=== PATIENT | female | born 1945 | race Caucasian/White ===

== ENCOUNTER → 2017-10-12 17:00 | Outpatient (CLI) | payer MEDICARE, SELFPAY ==
[2017-10-12 18:28] LABS: Anion Gap 6.3 mEq/L (5-15); Blood Urea Nitrogen 18 mg/dL (7-18); Calcium 8.4 mg/dL (8.5-10.1); Carbon Dioxide 32 mmol/L (21.0-32.0); Chloride 105 mmol/L (98-107); Creatinine,Serum 1.13 mg/dL (0.55-1.02); Estimated Glomerular Filt Rate 47 ml/min (>60); GFR (African American) 57 ML/MIN (>60); Glucose 84 mg/dL (74-106); Potassium 3.3 mmoL/L (3.5-5.1); Sodium 140 mmol/L (136-145)
== END ==
PROVIDERS: PCP Internal Medicine; Visit Provider Internal Medicine
DX: I50.9 Heart failure, unspecified (principal); I10 Essential (primary) hypertension
CPT/HCPCS: 36415; 80048; 80162; 83880

== ENCOUNTER → 2019-08-14 14:01 | Outpatient (CLI) | payer MEDICARE, MEDICAID, SELFPAY | PROVIDERS: PCP Family Medicine; Visit Provider Urology | DX: C95.90 Leukemia, unspecified not having achieved remission (principal); E11.9 Type 2 diabetes mellitus without complications; E66.01 Morbid (severe) obesity due to excess calories; E78.5 Hyperlipidemia, unspecified; G47.33 Obstructive sleep apnea (adult) (pediatric); I11.0 Hypertensive heart disease with heart failure; I48.91 Unspecified atrial fibrillation; I50.30 Unspecified diastolic (congestive) heart failure; Z79.01 Long term (current) use of anticoagulants; Z99.89 Dependence on other enabling machines and devices | CPT/HCPCS: 93306; G0399 ==

== ENCOUNTER 2019-08-24 08:08 | Day surgery (SDC) | payer MEDICARE, MEDICAID, SELFPAY ==
[2019-08-24] VITALS (12 sets, daily range): BP systolic 117–154; BP diastolic 69–88; PULSE 57–88; RESP 16–18; TEMP 36.9; O2SAT 88–94; BMI 39.6
--- NOTE | 2019-08-24 | IR_ITS ---
APPROVED REPORT PROCEDURES Left heart catheterization Left ventriculogram Selective coronary angiogram INDICATION Recent acute non-ST elevation myocardial infarction, New onset cardiomyopathy ejection fraction 20% Informed consent was obtained prior to the procedure. COMPLICATIONS None Estimated Blood Loss: less than 10ml TECHNIQUE One percent lidocaine used to anesthetize the right anterior aspect of the wrist. The right radial artery was accessed via the Seldinger technique. A 6 Malian sheath was placed in the right radial artery. 2.5 mg of verapamil, 800 mcg of nitroglycerin, 1mg Lidocaine and 5000 U Heparin were given through the arterial sheath. The trap catheter was also used to perform left heart catheterization, left ventriculogram and selective coronary angiogram. At the end of the procedure the sheath was removed good hemostasis was achieved using Traclet band, patient was transferred to the postop holding area in stable condition. ANGIOGRAPHIC RESULTS The left main artery Normal The left anterior descending artery Normal The circumflex artery Normal The right coronary artery Dominant normal The RHODES ventriculogram reveals Severely dilated global hypokinesis 20% The left ventricular end-diastolic pressure 10 mmHg IMPRESSION Normal coronary arteries Severe left ventricular dysfunction Normal left ventricular end-diastolic pressure PLAN 1. Medical management Electronically signed by : Monico Montana, 08/24/2019 10:12:01
[2019-08-24 08:52] LABS: Basophils # 0.1 K/mm3 (0-0.2); Basophils % 0.7 % (0.1-2.0); Eosinophils # 0.1 K/mm3 (0.0-0.4); Eosinophils % 0.7 % (0.1-12.0); Hematocrit 40.9 % (42.0-52.0); Hemoglobin 13.2 g/dL (14.1-18.0); Lymphocytes # 3.2 K/mm3 (0.7-4.5); Lymphocytes % 25.5 % (10-50); Mean Corpuscular HGB Conc 32.3 g/dL (31.8-35.4); Mean Corpuscular Hemoglobin 28.5 pg (27.0-31.2); Mean Corpuscular Volume 88.1 fl (80-94); Mean Platelet Volume 9.7 fl (7.4-10.4); Monocytes # 0.8 K/mm3 (0.1-1.0); Monocytes % 5.9 % (1.7-9.3); Neutrophils # 8.5 K/mm3 (1.8-7.8); Neutrophils % 67.2 % (37.0-80.0); Platelet Count 208 K/mm3 (142-424); Red Blood Count 4.64 M/mm3 (4.60-6.20); Red Cell Distribution Width 14.7 % (11.5-17.5); White Blood Count 12.7 K/mm3 (4.8-10.8)
[2019-08-24 08:57] LABS: Chloride 103 mmol/L (98-107); Sodium 139 mmol/L (136-145)
[2019-08-24 08:58] LABS: Potassium 3.7 mmoL/L (3.5-5.1)
[2019-08-24 09:00] LABS: Blood Urea Nitrogen 16 mg/dl (9-20); Creatinine Clearance Estimated 121 mL/min (50-200); Estimated Glomerular Filt Rate 94 ml/min (>60); GFR (African American) 114 ML/MIN (>60)
[2019-08-24 09:01] LABS: Anion Gap 12.7 mEq/L (5-15); Calcium 8.8 mg/dl (8.4-10.2); Carbon Dioxide 27 mmol/L (22.0-30.0); Glucose 220 mg/dl (74-100)
== END 2019-08-24 13:26 | disposition home or self-care (01) ==
LOC: CATHLAB 08:10
PROVIDERS: PCP Family Medicine; Visit Provider Internal Medicine
DX: I42.8 Other cardiomyopathies (principal); I11.0 Hypertensive heart disease with heart failure; I50.43 Acute on chronic combined systolic (congestive) and diastolic (congestive) heart failure; I21.4 Non-ST elevation (NSTEMI) myocardial infarction; C91.10 Chronic lymphocytic leukemia of B-cell type not having achieved remission; E11.9 Type 2 diabetes mellitus without complications; Z79.84 Long term (current) use of oral hypoglycemic drugs; Z79.01 Long term (current) use of anticoagulants; Z79.899 Other long term (current) drug therapy; I48.91 Unspecified atrial fibrillation
CPT/HCPCS: 80048; 85025; 93458; 99152; C1725; C1760; C1769; J1644; Q9967

== ENCOUNTER → 2020-01-08 07:37 | Outpatient (CLI) | payer MEDICARE, MEDICAID, SELFPAY | PROVIDERS: PCP Family Medicine; Visit Provider Urology | DX: I42.9 Cardiomyopathy, unspecified; I50.43 Acute on chronic combined systolic (congestive) and diastolic (congestive) heart failure; C91.10 Chronic lymphocytic leukemia of B-cell type not having achieved remission; C95.11 Chronic leukemia of unspecified cell type, in remission; E11.9 Type 2 diabetes mellitus without complications; E66.01 Morbid (severe) obesity due to excess calories; E78.2 Mixed hyperlipidemia; I11.0 Hypertensive heart disease with heart failure; I48.91 Unspecified atrial fibrillation; G47.33 Obstructive sleep apnea (adult) (pediatric); Z79.01 Long term (current) use of anticoagulants; Z99.89 Dependence on other enabling machines and devices; Z79.84 Long term (current) use of oral hypoglycemic drugs | CPT/HCPCS: 93306 ==

== ENCOUNTER → 2020-10-08 10:10 | Outpatient (CLI) | payer MEDICARE, MEDICAID, SELFPAY ==
[2020-10-08 13:49] LABS: Alanine Aminotransferase 21 U/L (12-78); Alkaline Phosphatase 72 U/L (38-126); Aspartate Amino Transferase 30 U/L (17-59); Bilirubin,Direct 0.6 mg/dl (0.0-0.4); Bilirubin,Total 0.6 mg/dl (0.2-1.3); Chol/HDL Ratio 6.3 (1-3.5); Cholesterol 203 mg/dl (140-200); HDL Cholesterol 32 mg/dl (40-60); Total Protein,Serum 6.9 g/dl (6.3-8.2)
[2020-10-08 13:54] LABS: Triglycerides 474 mg/dl (30-150)
[2020-10-08 14:00] LABS: Direct LDL Cholesterol 97.71 mg/dL (100-129)
== END ==
PROVIDERS: Visit Provider Internal Medicine
DX: I10 Essential (primary) hypertension (principal); E78.5 Hyperlipidemia, unspecified
CPT/HCPCS: 36415; 80061; 80076

== ENCOUNTER → 2021-04-11 08:20 | Outpatient (CLI) | payer MEDICARE, MEDICAID, SELFPAY ==
--- NOTE | 2021-04-11 08:21 | CA_ITS ---
APPROVED REPORT EXAM: Comprehensive 2D, Doppler, and color-flow Echocardiogram Picker Feeder: Desi Jacques CRT Ht: 6 ft 1 in Wt: 286lbs BSA: 2.50 BP: 145/66 mmHg Indications: Atrial Fibrillation, Diabetes, Obesity, Peripheral Edema, Hyperlipidemia, Hypertension/HDD 2D Dimensions LVOT 2.03 cm (M/F) 1.5-2.5 LA Volume 57.30 mL LA Volume Index 22.80 mL/m2 (M/F) 16-34 M-Mode Dimensions RVDd 3.62 cm (0.9-2.6) LA Diam 5.00 cm (1.9-4.0) LVDd 6.43 cm (3.5-5.7) Ao Diam 5.17 cm (2.0-3.7) LVDs 4.99 cm (3.5-5.7) IVSd 1.80 cm (0.6-1.1) PWd 1.29 cm (0.6-1.1) EF (Teich) 44.20% FS 22.40% EDV (Teich) 210.80 mL TAPSE 1.48 (<1.7) ESV (Teich) 117.70 mL LV Diastology E Decel Time 203.00 (160-240 msec) E/A Ratio 4.49 MED E' 9.70 (< 7 cm/sec) MED A' 7.10 cm/s E'/MED E' Ratio 8.56 (>14) LAT E' 6.90 (<10 cm/sec) LAT A' 5.70 cm/s E/LAT E' Ratio 12.03 (>14) Aortic Valve LVOT Max 161.00 (70-110 cm/s) LVOT VTI 33.10 cm AoV Peak Joselo. 250.00 (50-130 cm/s) AO Peak GR. 25.10 mmHg AO Mean GR. 11.20 (<5 mmHg) AO VTI 45.40 (18-25 cm) LI (VTI) 2.36 (2.5-4.5 cm2) Mitral Valve MV E Max Joselo. 83.00 (40-130 cm/s) MV A Velocity 19.00 (40-130 cm/s) E/A Ratio 4.49 MV Decel. Time 203.00 (160-240 ms) MV PHT 60.00 ms Tricuspid Valve TR P. Velocity 276.00 cm/s RAP Estimate 10.00 mmHg RVSP 40.40 mmHg Left Ventricle Left atrium is moderately enlarged, left ventricle is mildly dilated, mild concentric left ventricular hypertrophy, visually estimated ejection fraction 45%, the proximal interventricular septum and inferior basal jara are dyskinetic. Diastolic parameters are inconclusive. Right Ventricle Right atrium and right ventricle mildly enlarged with normal contractility. Aortic Valve Aortic valve is thickened and calcified mean gradient across aortic valve is 12 mmHg, valve area is 1.6 cm represents mild aortic stenosis, there is no significant aortic insufficiency seen. Mitral Valve Mitral valve leaflets are minimally thickened, there is mild mitral regurgitation. Tricuspid Valve Tricuspid valve grossly normal, there is mild tricuspid regurgitation, tricuspid regurgitation jet velocity is inadequate for calculation of the right ventricular systolic pressure. Pulmonic Valve Pulmonic valve is poorly visualized. Great Vessels Aortic root is normal size. Inferior vena cava is poorly visualized. Pericardium No significant pericardial effusion. Conclusion 1. Biatrial enlargement, normal left ventricular size, mild concentric left ventricular hypertrophy, visually estimated ejection fraction 45% with segmental wall motion abnormality described above, diastolic parameters are inconclusive. 2. Mildly enlarged right ventricle with normal contractility. 3. Thickened and calcified aortic valve with mild aortic stenosis, there is no aortic insufficiency. 4. Mild mitral and tricuspid regurgitation. 5. No significant pericardial effusion. 6. Inferior vena cava is poorly visualized. Electronically signed by : Maurizio Yeager MD 04/11/2021 10:08:45
== END ==
PROVIDERS: PCP Family Medicine; Visit Provider Nurse Practitioner Family
DX: I42.9 Cardiomyopathy, unspecified (principal); I50.43 Acute on chronic combined systolic (congestive) and diastolic (congestive) heart failure; R94.31 Abnormal electrocardiogram [ECG] [EKG]
CPT/HCPCS: 93306

== ENCOUNTER → 2021-11-13 14:46 | Outpatient (CLI) | payer MEDICARE, MEDICAID, SELFPAY ==
--- NOTE | 2021-11-13 14:53 | CA_ITS ---
APPROVED REPORT EXAM: Comprehensive 2D, Doppler, and color-flow Echocardiogram Malted Milk Supervisor: Bhavani Dooley RT(R) Ht: 6 ft 1 in Wt: 289lbs BSA: 2.52 BP: 157/73 mmHg Indications: CHF, hx of CM, echo 03/2021 EF 45%, recent hospital stay at [facility] with CHF diagnosis, MARSHAL, CLL, AFIB, mild , SOB, obesity, CAD, DM, HTN, hyperlipidemia. 2D Dimensions LVOT 2.10 cm (M/F) 1.5-2.5 LA Volume 80.50 mL LA Volume Index 32.07 mL/m2 (M/F) 16-34 M-Mode Dimensions RVDd 3.83 cm (0.9-2.6) LA Diam 4.78 cm (1.9-4.0) LVDd 5.65 cm (3.5-5.7) Ao Diam 3.06 cm (2.0-3.7) LVDs 4.62 cm (3.5-5.7) IVSd 1.38 cm (0.6-1.1) PWd 1.13 cm (0.6-1.1) EF (Teich) 37.30% FS 18.20% EDV (Teich) 156.80 mL ESV (Teich) 98.30 mL LV Diastology E Decel Time 150.00 (160-240 msec) E/A Ratio 3.1 Aortic Valve LVOT Max 138.00 (70-110 cm/s) LVOT VTI 26.05 cm AoV Peak Joselo. 280.00 (50-130 cm/s) AO Peak GR. 31.50 mmHg AO Mean GR. 15.40 (<5 mmHg) AO VTI 53.11 (18-25 cm) LI (VTI) 1.70 (2.5-4.5 cm2) Mitral Valve MV E Max Joselo. 91.00 (40-130 cm/s) MV A Velocity 29.00 (40-130 cm/s) E/A Ratio 3.09 MV Decel. Time 150.00 (160-240 ms) MV PHT 44.00 ms Tricuspid Valve TR P. Velocity 302.00 cm/s RAP Estimate 15.00 mmHg RVSP 51.50 mmHg Left Ventricle Technically difficult study because of the patient factors and poor acoustic windows. Left atrium is moderately enlarged, left ventricle is normal size mild concentric left ventricular hypertrophy, probably estimated ejection fraction 40 to 45% with no obvious regional wall motion abnormality, endocardial cells are very poorly visualized. Diastolic parameters are inconclusive. Right Ventricle Right atrium and right ventricle are mildly enlarged with normal contractility. Aortic Valve Aortic valve is thickened and calcified with restriction in the leaflet mobility however Doppler is indicative of mild aortic stenosis, mean gradient aortic valve is 18 mmHg, valve area is 1.5 cm???, there is no aortic insufficiency. Mitral Valve Mitral valve has mitral calcification, there is no mitral stenosis, there is mild mitral regurgitation. Tricuspid Valve Tricuspid valve is grossly normal, there is mild tricuspid regurgitation, calculated right ventricular systolic pressure is 46 mmHg. Pulmonic Valve Pulmonic valve is poorly visualized. Great Vessels Aortic root is normal size. Inferior vena cava is poorly visualized. Pericardium No significant pericardial effusion noted. Conclusion 1. Technically difficult study as described above, biatrial enlargement, normal left ventricular size, mild concentric left ventricular hypertrophy, estimated ejection fraction is probably 40 to 45% with no regional wall motion abnormality, diastolic parameters are inconclusive. 2. Mildly enlarged right ventricle with normal contractility. 3. Thickened and calcified aortic valve, Doppler is indicative of mild aortic stenosis, valve area is 1.5 cm???, there is no significant aortic insufficiency. 4. No significant pericardial effusion noted. 5. Inferior vena cava is poorly visualized. Electronically signed by : Maurizio Yeager MD 11/14/2021 14:43:27
== END ==
PROVIDERS: PCP Family Medicine; Visit Provider Nurse Practitioner
DX: C91.90 Lymphoid leukemia, unspecified not having achieved remission (principal); E11.9 Type 2 diabetes mellitus without complications; E66.01 Morbid (severe) obesity due to excess calories; E78.2 Mixed hyperlipidemia; I11.0 Hypertensive heart disease with heart failure; I35.0 Nonrheumatic aortic (valve) stenosis; I50.42 Chronic combined systolic (congestive) and diastolic (congestive) heart failure; Z79.01 Long term (current) use of anticoagulants; Z99.89 Dependence on other enabling machines and devices; Z68.38 Body mass index [BMI] 38.0-38.9, adult; Z79.84 Long term (current) use of oral hypoglycemic drugs; R94.31 Abnormal electrocardiogram [ECG] [EKG]
CPT/HCPCS: 93306

== ENCOUNTER 2022-08-12 13:32 | Inpatient (IN) | payer MEDICARE, MEDICAID, SELFPAY ==
[2022-08-12] VITALS (14 sets, daily range): BP systolic 132–179; BP diastolic 53–92; PULSE 31–81; RESP 14–20; TEMP 36.4–36.9; O2SAT 87–98; BMI 38.2; BMI 37.5
--- NOTE | 2022-08-12 13:40 | ECG_ITS ---
APPROVED REPORT Exam: Resting ECG HR:41 bpm ECG Measurements Heart Rate 41 AXES QRSd 127 QRS -7 QT 402 T 160 QTc 337 Conclusion ATRIAL FIBRILLATION WITH SLOW VENTRICULAR RESPONSE LEFT BUNDLE BRANCH BLOCK [120+ ms QRS DURATION, 80+ ms Q/S IN V1/V2, 85+ ms R IN I/aVL/V5/V6] ABNORMAL ECG UNCONFIRMED REPORT Electronically signed by : Govind Deshpande MD 08/13/2022 22:22:42
--- NOTE | 2022-08-12 13:40 | PC.NURSE ---
MD notified of pt heart rate at this time. pt is placed on Zoll and remains on phototypesetting equipment monitor. asked MD about giving medication for HR. no new orders at this time
--- NOTE | 2022-08-12 13:57 | XR_ITS ---
FINAL REPORT CLINICAL HISTORY: dyspnea FINDINGS: SINGLE VIEW CHEST The heart size is normal. The mediastinum is normal. There is mild left lung base opacity favors atelectasis over pneumonia. There is no pneumothorax. IMPRESSION: Mild left lung base opacity, favoring atelectasis over pneumonia Reviewed, Interpreted and Dictated by Geovany Tijerina III, MD Transcribed by Dolores Flores Authenticated and [facility]
--- NOTE | 2022-08-12 13:58 | HMH.EDGENADL ---
Discharge Plan Disposition Patient Disposition: Admitted Chief Complaint: Arrhythmia/Palpitations Prescriptions Prescriptions: No Action nitroglycerin 0.4 mg tablet, sublingual 0.4 mg SUBLINGUAL Q5-15M PRN spironolactone 25 mg tablet 25 mg PO DAILY Farxiga 10 mg tablet 10 mg PO DAILY gabapentin 300 mg capsule 300 mg PO BID glipizide 10 mg tablet extended release 24hr 10 mg PO DAILY levothyroxine 75 mcg tablet 75 mcg PO fluticasone propionate 50 mcg/actuation spray,suspension 2 spray intranasal DAILY PRN metformin 500 mg tablet extended release 24 hr 500 mg PO BID albuterol sulfate [Ventolin HFA] 90 mcg/actuation HFA aerosol inhaler 2 puff inhalation Q4-6H Imbruvica 420 mg tablet 420 mg PO DAILY lisinopril 10 mg tablet 10 mg PO DAILY Qty: 90 3RF metolazone 2.5 mg tablet 2.5 mg PO Q OTHER DAY carvedilol 12.5 mg tablet 12.5 mg PO BID Qty: 180 5RF Rx Instructions: must administer with a meal/food Xarelto 20 mg tablet See Rx Instructions .ROUTE .COMPLEX Qty: 90 1RF Dose Instruction: TAKE 1 TABLET EVERY DAY Rx Instructions: TAKE 1 TABLET EVERY DAY digoxin 125 mcg (0.125 mg) tablet See Rx Instructions .ROUTE .COMPLEX Qty: 90 1RF Dose Instruction: TAKE 1 TABLET EVERY DAY Rx Instructions: TAKE 1 TABLET EVERY DAY simvastatin 80 mg tablet See Rx Instructions .ROUTE .COMPLEX Qty: 90 1RF Dose Instruction: TAKE 1 TABLET AT BEDTIME Rx Instructions: TAKE 1 TABLET AT BEDTIME furosemide 40 mg tablet See Rx Instructions .ROUTE .COMPLEX Qty: 180 1RF Dose Instruction: TAKE 1 TABLET TWICE DAILY Rx Instructions: TAKE 1 TABLET TWICE DAILY pantoprazole 40 mg tablet,delayed release (DR/EC) See Rx Instructions .ROUTE .COMPLEX Qty: 90 1RF Dose Instruction: TAKE 1 TABLET EVERY DAY Rx Instructions: TAKE 1 TABLET EVERY DAY Referrals Follow up/Referrals: Kishan Tapia [Primary Care Provider] - See instructions Clinical Impressions Clinical Impression: Symptomatic bradycardia, NICHOLAS (acute kidney injury) Discharge ED Provider: Laura Gibbs General Adult HPI General Chief complaint: Arrhythmia/Palpitations Stated complaint: Phys ref, weakness, irregular heart pace Time Seen by Provider: 08/12/22 13:51 History of Present Illness HPI narrative: Patient is a 76-year-old male with a history of cardiomyopathy CHF leukemia diabetes atrial fibrillation diastolic heart failure presenting today with bradycardia and weakness. States he fell last night went to his primary care doctor today who gave me a call and sent him to the emergency department. Patient does not have a defibrillator and AICD in place. He is on beta-blockers including Coreg. He has not changed any medication doses recently he had normal urine output and states that he has not changed any other medications. Patient denies any chest pain shortness of breath fevers chills or any other symptoms other than his profound weakness. Related Data Home Medications Medication Instructions Recorded Confirmed nitroglycerin 0.4 mg sublingual 0.4 mg sublingual Q5-15M PRN 08/17/19 05/01/22 tablet spironolactone 25 mg tablet 25 mg PO DAILY 01/08/20 05/01/22 dapagliflozin propanediol 10 mg 10 mg PO DAILY 04/11/21 05/01/22 tablet (Farxiga) albuterol sulfate 90 mcg/actuation 2 puff inhalation Q4-6H 10/24/21 05/01/22 aerosol inhaler (Ventolin HFA) gabapentin 300 mg capsule 300 mg PO BID 10/24/21 05/01/22 ibrutinib 420 mg tablet (Imbruvica) 420 mg PO DAILY 10/24/21 05/01/22 metformin 500 mg tablet,extended 500 mg PO BID 10/24/21 05/01/22 release 24 hr metolazone 2.5 mg tablet 2.5 mg PO Q OTHER DAY 11/13/21 05/01/22 fluticasone propionate 50 2 spray intranasal DAILY PRN 05/01/22 05/01/22 mcg/actuation nasal spray,suspension glipizide 10 mg tablet, extended 10 mg PO DAILY 05/01/22 05/01/22 re
--- NOTE | 2022-08-12 13:59 | ECG_ITS ---
APPROVED REPORT Exam: Resting ECG HR:57 bpm ECG Measurements Heart Rate 57 AXES WV 158 P -83 QRSd 128 QRS -31 QT 476 T -60 QTc 471 Conclusion SINUS BRADYCARDIA WITH FREQUENT VENTRICULAR PREMATURE COMPLEXES IN A BIGEMINAL PATTERN INFERIOR MYOCARDIAL INFARCTION , OF INDETERMINATE AGE [40+ ms Q WAVE AND/OR ST/T ABNORMALITY IN II/aVF] ST DEVIATION AND MODERATE T-WAVE ABNORMALITY, CONSIDER LATERAL ISCHEMIA [-0.1+ mV T-WAVE IN I/aVL/V5/V6] ABNORMAL ECG UNCONFIRMED REPORT Electronically signed by : Govind Deshpande MD 08/13/2022 22:22:35
[2022-08-12 14:15] LABS: Chloride 98 mmol/L (98-107); Sodium 139 mmol/L (136-145)
[2022-08-12 14:16] LABS: Potassium 5.1 mmoL/L (3.5-5.1)
[2022-08-12 14:18] LABS: Alanine Aminotransferase 18 U/L (12-78); Alkaline Phosphatase 81 U/L (38-126); Aspartate Amino Transferase 32 U/L (17-59); Bilirubin,Total 0.9 mg/dl (0.2-1.3); Blood Urea Nitrogen 44 mg/dl (9-20); Estimated Glomerular Filt Rate 37 ml/min (>60); GFR (African American) 44 ML/MIN (>60)
[2022-08-12 14:19] LABS: Albumin/Globulin Ratio 1.4 (1.1-1.8); Calcium 8.1 mg/dl (8.4-10.2); Carbon Dioxide 35 mmol/L (22.0-30.0); Globulin 2.9 g/dL (1.3-3.2); Glucose 136 mg/dl (74-100); Magnesium 2.4 mg/dl (1.6-2.3); Total Protein,Serum 6.9 g/dl (6.3-8.2)
[2022-08-12 14:22] LABS: Anion Gap 11.1 mEq/L (5-15)
[2022-08-12 14:31] LABS: Troponin I 0.05 ng/ml (0.00-0.034)
[2022-08-12 14:57] LABS: Basophils # 0.7 K/mm3 (0-0.2); Basophils % 1.6 % (0.1-2.0); Eosinophils # 0.2 K/mm3 (0.0-0.4); Eosinophils % 0.4 % (0.1-12.0); Hematocrit 42.5 % (42.0-52.0); Hemoglobin 13.1 g/dL (14.1-18.0); Lymphocytes % 76.4 % (10-50); Mean Corpuscular HGB Conc 30.8 g/dL (31.8-35.4); Mean Corpuscular Hemoglobin 29.7 pg (27.0-31.2); Mean Corpuscular Volume 96.5 fl (80-94); Mean Platelet Volume 10.4 fl (7.4-10.4); Monocytes # 1.4 K/mm3 (0.1-1.0); Monocytes % 3.3 % (1.7-9.3); Neutrophils # 7.7 K/mm3 (1.8-7.8); Neutrophils % 18.4 % (37.0-80.0); Platelet Count 227 K/mm3 (142-424)
[2022-08-12 14:59] LABS: White Blood Count 41.9 K/mm3 (4.8-10.8)
[2022-08-12 15:00] LABS: MANUAL DIFFERENTIAL MANUAL DIFFERENTIAL (MANUAL DIFF)
--- NOTE | 2022-08-12 15:21 | PC.NURSE ---
CHECKED ON PT NOTHING NEEDED AT THIS TIME, CALL LIGHT AT BS
[2022-08-12 15:23] LABS: Thyroid Stimulating Hormone 7.22 uIU/mL (0.465-4.68)
[2022-08-12 15:26] LABS: Lymphocytes % 67 % (10-50); Monocytes % 4 % (2-9); Neutrophils % 26 % (42-76); Total Cells Counted 100
[2022-08-12 15:28] LABS: Platelet Estimate Normal; Poikilocytosis 1+; Stomatocytes 1+
--- NOTE | 2022-08-12 15:30 | PC.NURSE ---
Spoke with Nichole in Care Management regarding pt admission
--- NOTE | 2022-08-12 15:32 | PC.NURSE ---
COVID SWAB SENT TO LAB
[2022-08-12 15:36] LABS: Coronavirus 19, PCR Not Detected (NotDetected); Influenza A, PCR Not Detected (NotDetected); Influenza B, PCR Not Detected (NotDetected)
--- NOTE | 2022-08-12 15:42 | EXP.HP ---
History of Present Illness *Admission Date: 08/12/22 *Reason for visit:: weakness *History of present illness: Mr. Kong is a 76-year-old male with significant cardiac history, history of cardiomyopathy, CHF, CLL, diabetes, A-fib who presents today to the ER with bradycardia and weakness. States he fell last night at home. Went to his primary care today who gave the ER call. Patient was sent for further evaluation. Does not have a defibrillator AICD in place. Last echo approximately a year ago with a EF 40 to 45%. Currently on beta-blockers with carvedilol and digoxin. Urine output has been normal. Denies any increase in shortness of breath. Denies any chest pain. No edward syncope. No fever, chills, increased cough. Swelling in legs is at baseline. Of note leukocytosis greater than 40,000, on ibrutinib for his CLL. ER consulted medicine for admission and further management. Currently on telemetry. Admitted to stepdown out of potential need for possible pacing or treatment with atropine for bradycardia. Continue telemetry. Patient pleasant, alert on exam. Chronically ill-appearing. Complains of weakness. [facility] Disclaimer: The information contained in this section may have been updated after the patient was seen, as this information can be updated by other users. Medical History Cardiomyopathy CHF (congestive heart failure) Hyperlipidemia Hypertension Leukemia MARSHAL on CPAP Toe amputee Surgical History History of removal of cyst Family History No significant family history Social History Smoking Status: Never smoker alcohol intake: never substance use type: denies use current occupational status: retired Travel in the last 8 weeks: Inside the [place] household members: spouse housing: house Meds Home Medications and Allergies Home Medications Medication Instructions Recorded Confirmed Type nitroglycerin 0.4 mg sublingual 0.4 mg sublingual Q5-15M PRN Chest 08/17/19 08/12/22 History tablet Pain spironolactone 25 mg tablet 25 mg PO DAILY blood pressure 01/08/20 08/12/22 History dapagliflozin propanediol 10 mg 10 mg PO DAILY Diabetes 04/11/21 08/12/22 History tablet (Farxiga) albuterol sulfate 90 mcg/actuation 2 puff inhalation Q4-6H PRN 10/24/21 08/12/22 History aerosol inhaler (Ventolin HFA) Breathing Problems gabapentin 300 mg capsule 300 mg PO TID neuropathy 10/24/21 08/12/22 History ibrutinib 420 mg tablet (Imbruvica) 420 mg PO DAILY daily 10/24/21 08/12/22 History metformin 500 mg tablet,extended 500 mg PO BID Diabetes 10/24/21 08/12/22 History release 24 hr fluticasone propionate 50 2 spray intranasal DAILY PRN 05/01/22 08/12/22 History mcg/actuation nasal allergies spray,suspension glipizide 10 mg tablet, extended 10 mg PO DAILY Diabetes 05/01/22 08/12/22 History release 24 hr levothyroxine 75 mcg tablet 75 mcg PO DAILY thyroid 05/01/22 08/12/22 History carvedilol 12.5 mg tablet 12.5 mg PO BID blood pressure 08/12/22 08/12/22 History digoxin 125 mcg (0.125 mg) tablet 0.125 mg PO DAILY afib 08/12/22 08/12/22 History furosemide 40 mg tablet 40 mg PO BID chf 08/12/22 08/12/22 History levocetirizine 5 mg tablet 5 mg PO DAILY allergies 08/12/22 08/12/22 History lisinopril 10 mg tablet 10 mg PO DAILY blood pressure 08/12/22 08/12/22 History pantoprazole 40 mg tablet,delayed 40 mg PO DAILY gerd 08/12/22 08/12/22 History release rivaroxaban 20 mg tablet (Xarelto) 20 mg PO DAILY Blood thinner 08/12/22 08/12/22 History simvastatin 80 mg tablet 80 mg PO DAILY Cholesterol 08/12/22 08/12/22 History New Prescriptions to Start Prescriptions: Allergies Allergy/AdvReac Type Severity Reaction Status Date / Time No Known Allergies Allergy Verified 08/12/22 19:56
--- NOTE | 2022-08-12 15:49 | PC.NURSE ---
Notified ED Charge of bed assignment. Pt going to 219. Registration notified of admission
[2022-08-12 16:03] LABS: Hemoglobin A1C 8.7 % (4.0-6.0)
--- NOTE | 2022-08-12 16:17 | PC.NURSE ---
report given to SUNIL Farmer
--- NOTE | 2022-08-12 16:41 | PC.NURSE ---
arrived by stretcher from ED
[2022-08-12 17:29] LABS: Troponin I 0.06 ng/ml (0.00-0.034)
[2022-08-12 17:34] LABS: POC Glucose,Bedside 160 (70-110)
[2022-08-12 17:47] LABS: Thyroid Stimulating Hormone 7.48 uIU/mL (0.465-4.68)
[2022-08-12 20:20] LABS: POC Glucose,Bedside 165 (70-110)
[2022-08-12 20:49] LABS: Troponin I 0.05 ng/ml (0.00-0.034)
[2022-08-13] VITALS (25 sets, daily range): BP systolic 105–192; BP diastolic 39–92; PULSE 31–60; RESP 16–22; TEMP 36.6–37.7; O2SAT 89–96; BMI 37.0
[2022-08-13 06:51] LABS: POC Glucose,Bedside 127 (70-110)
[2022-08-13 07:04] LABS: Basophils # 0.4 K/mm3 (0-0.2); Basophils % 0.9 % (0.1-2.0); Eosinophils # 0.1 K/mm3 (0.0-0.4); Eosinophils % 0.3 % (0.1-12.0); Hematocrit 42.6 % (42.0-52.0); Hemoglobin 12.8 g/dL (14.1-18.0); Lymphocytes # 32.7 K/mm3 (0.7-4.5); Lymphocytes % 77.1 % (10-50); Mean Corpuscular HGB Conc 30.1 g/dL (31.8-35.4); Mean Corpuscular Hemoglobin 29.7 pg (27.0-31.2); Mean Corpuscular Volume 98.5 fl (80-94); Mean Platelet Volume 10.5 fl (7.4-10.4); Monocytes # 1.5 K/mm3 (0.1-1.0); Monocytes % 3.5 % (1.7-9.3); Neutrophils # 7.7 K/mm3 (1.8-7.8); Neutrophils % 18.1 % (37.0-80.0); Platelet Count 217 K/mm3 (142-424); Red Blood Count 4.32 M/mm3 (4.60-6.20)
[2022-08-13 07:11] LABS: MANUAL DIFFERENTIAL MANUAL DIFFERENTIAL (MANUAL DIFF); White Blood Count 42.4 K/mm3 (4.8-10.8)
[2022-08-13 07:18] LABS: Chloride 100 mmol/L (98-107); Potassium 4.7 mmoL/L (3.5-5.1); Sodium 141 mmol/L (136-145)
[2022-08-13 07:20] LABS: Alanine Aminotransferase 16 U/L (12-78); Alkaline Phosphatase 83 U/L (38-126); Anion Gap 13.7 mEq/L (5-15); Aspartate Amino Transferase 40 U/L (17-59); Bilirubin,Total 0.9 mg/dl (0.2-1.3); Blood Urea Nitrogen 42 mg/dl (9-20); Carbon Dioxide 32 mmol/L (22.0-30.0); Creatinine Clearance Estimated 67 mL/min (50-200); Estimated Glomerular Filt Rate 39 ml/min (>60); GFR (African American) 48 ML/MIN (>60); Triglycerides 209 mg/dl (30-150); VLDL Cholesterol 42 mg/dL (0-40)
[2022-08-13 07:21] LABS: Albumin Level 3.8 g/dl (3.5-5.0); Albumin/Globulin Ratio 1.4 (1.1-1.8); Calcium 8.2 mg/dl (8.4-10.2); Chol/HDL Ratio 6.5 (1-3.5); Cholesterol 110 mg/dl (140-200); Globulin 2.8 g/dL (1.3-3.2); Glucose 131 mg/dl (74-100); HDL Cholesterol 17 mg/dl (40-60); Magnesium 2.4 mg/dl (1.6-2.3); Total Protein,Serum 6.6 g/dl (6.3-8.2)
[2022-08-13 07:32] LABS: Direct LDL Cholesterol 51.16 mg/dL (100-129)
[2022-08-13 08:38] LABS: Eosinophils % 1 % (0-3); Lymphocytes % 68 % (10-50); Monocytes % 2 % (2-9); Neutrophils % 29 % (42-76); Platelet Estimate Normal; RBC Morphology Normal; Total Cells Counted 100
--- NOTE | 2022-08-13 09:18 | HMH.PHAINT1 ---
Pharmacy Intervention Comments: Patient's home medications reviewed and verified with patient and external pharmacy. -Jace Francois, Pharm Student
--- NOTE | 2022-08-13 10:56 | PC.NURSE ---
COURTESY TECH NOTE; ROUNDED ON PT 0900, PT DENIED NEED FOR DRINK, ASSISTED PRIMARY TECH TO POSITION PT IN BED AND ADJUST BEDPAN. CALL LIGHT WITHIN REACH, NO FURTHER REQUESTS AT THIS TIME KING MULLEN
--- NOTE | 2022-08-13 11:09 | EXP.CARD.CON ---
History of Present Illness History of Present Illness Consult date: 08/13/22 Requesting physician: Kishan Noguera Chief complaint: symptomatic bradycardia History of present illness: 76 year old white male with past medical hx of chronic afib, CLL on irbrutinib, normal cors 2020, mild aortic stenosis presented to emergency department last night with complaints of generalized weakness and bradycardia. Patient reports he sustained a fall at home the night before which prompted him to go to his PCP yesterday. Upon arrival to PCPs office patient was noted to be bradycardic with rate in the 40s prompting referral to ER. Upon arrival to ED EKG was sinus freida with a rate of 41. Patient takes both Coreg and digoxin at home. Patient denies chest pain or soa. Only complaints of ongoing weakness. Labs as follow: WBC 42.4 (CLL on a irbrutinib), hemoglobin 12.8, creatinine 1.7, digoxin level 2.0, TSH 7.48. Chest xray and left lung base atelectasis versus pneumonia. Patient was admitted for symptomatic bradycardia and for cardiology evaluation. Coreg was held last night and rate remains afib 30-40s. [facility] Disclaimer: The information contained in this section may have been updated after the patient was seen, as this information can be updated by other users. Medical History Cardiomyopathy CHF (congestive heart failure) Hyperlipidemia Hypertension Leukemia MARSHAL on CPAP Toe amputee Surgical History History of removal of cyst Family History No significant family history Social History Smoking Status: Never smoker alcohol intake: never substance use type: denies use current occupational status: retired Travel in the last 8 weeks: [place] the [place] household members: spouse housing: house Review of Systems Review of Systems Review of systems:: pertinent systems reviewed and negative unless documented below Constitutional Constitutional: Reports weakness *Cardiovascular Cardiovascular: Denies chest pain and Denies dyspnea on exertion *Respiratory Respiratory: Denies dyspnea on exertion *Neurologic Neurologic: Reports weakness Exam Data for Last 24 hours Vital signs and Labs for Last 24 Hours: Temp Pulse Resp BP Pulse Ox 99.8 F H 47 L 18 185/68 H 93 L 08/13/22 08:00 08/13/22 08:54 08/13/22 06:00 08/13/22 06:00 08/13/22 06:00 Laboratory Results - last 24 hr 08/12/22 14:03: WBC 41.9 H*, RBC 4.40 L, Hgb 13.1 L, Hct 42.5, MCV 96.5 H, MCH 29.7, MCHC 30.8 L, RDW 16.0, Plt Count 227, MPV 10.4, Neut % (Auto) 18.4 L, Lymph % (Auto) 76.4 H, Stafford % (Auto) 3.3, Eos % (Auto) 0.4, Baso % (Auto) 1.6, Neut # (Auto) 7.7, Lymph # (Auto) 32.0 H, Stafford # (Auto) 1.4 H, Eos # (Auto) 0.2, Baso # (Auto) 0.7 H, Total Counted 100, Neutrophils % (Manual) 26 L, Lymphocytes % (Manual) 67 H, Monocytes % (Manual) 4, Basophils % (Manual) 2.0 H, Blast Cells % 1.0, Platelet Estimate Normal, RBC Morphology Not Reportable, Poikilocytosis 1+, Stomatocytes 1+, Sodium 139, Potassium 5.1, Chloride 98, Carbon Dioxide 35 H, Anion Gap 11.1, BUN 44 H, Creatinine 1.80 H, Estimated GFR 37 L, Est GFR ( Amer) 44 L, Glucose 136 H, Hemoglobin A1c 8.7 H, Calcium 8.1 L, Magnesium 2.4 H, Total Bilirubin 0.9, AST 32, ALT 18, Alkaline Phosphatase 81, Troponin I 0.05 H, Total Protein 6.9, Albumin 4.0, Globulin 2.9, Albumin/Globulin Ratio 1.4, TSH 7.22 H 08/12/22 15:29: SARS-CoV-2 (PCR) Not detected, Influenza A Untype (PCR) Not detected, Influenza Type B (PCR) Not detected 08/12/22 16:55: Troponin I 0.06 H, TSH 7.48 H 08/12/22 17:12: POC Glucose 160 H 08/12/22 20:05: Troponin I 0.05 H 08/12/22 20:08: POC Glucose 165 H 08/13/22 06:18: WBC 42.4 H*, RBC 4.32 L, Hgb 12.8 L, Hct 42.6, MCV 98.5 H, MCH 29.7, MCHC 30.1 L, RDW 16.0, Plt Count 217, MPV 10.5 H, Neut % (Auto) 18
--- NOTE | 2022-08-13 11:36 | HMH.PTEV ---
Physical Therapy Evaluation Rehab PT IP Evaluation Start: 08/13/22 10:04 Freq: ONCE Status: Active Protocol: Document 08/13/22 11:31 PHORNE (Rec: 08/13/22 11:36 PHORNE [id number]) Subjective/History History History 76 yowm adm to [facility] with symptomatic bradycardia. He reports he lives with his spouse, ramp to enter the home , he generally ambulates independently, but he has RW and cane at home if needed. Subjective Subjective Pt currently has no c/o , feels mildly tired, but agrees to mobility assessment. Rehab PT IP Eval Objective Appearance Patient Behavior Appropriate Patient Orientation Person,Place,Time Difficulty following instructions none Speech Pattern Clear Ambulation Patient Able to Ambulate Yes Ambulation Observation IP General Gait Pattern Observation Wide Based Gait Ambulation Distance (feet) 5 Ambulation Assistive Device None Ambulation Ability Contact Guard/Hand Hold Balance Ability to Arise Able, uses arms to help Sitting Balance Steady, safe Standing Balance Steady, wide stance Dynamic Sitting Balance Ability Good Dynamic Standing Balance Ability Fair Transfers Bed Transfer Ability Contact Guard/Hand Hold Chair Transfer Ability Contact Guard/Hand Hold Sit to Stand Bed Transfer Ability Contact Guard/Hand Hold Sit to Stand Chair Transfer Ability Contact Guard/Hand Hold ROM All Extremities PT ROM Status WFL MMT All Extremities PT MMT WFL Rehab PT IP prob,goals,plan Problems Date of Evaluation: 08/13/22 PT IP Problems Bed Mobility,Transfers,Gait Rehab Potential Rehab Potential Good Plan PT Intervention Plan Bed Mobility,Transfers,Gait, Therapeutic Exercise PT Plan Frequency Daily Duration LOS Discharge Goals Bed Transfer Ability Supervision/Stand by Sit to Stand Chair Transfer Ability Supervision/Stand by Ambulation Assistive Device Rolling Walker Ambulation Distance (feet) 25 Discharge Plan PT Discharge Plan Pt is currently appropriate to return home once medically stable for d/c. This may change after he receives possible pacemaker, but likely he would continue to be able to return ho
--- NOTE | 2022-08-13 11:46 | HMH.OTEV ---
OT Inpatient Evaluation Rehab OT IP Evaluation Start: 08/13/22 10:04 Freq: ONCE Status: Active Protocol: Document 08/13/22 11:42 CALEB (Rec: 08/13/22 11:46 [id number] Rehab OT IP Assessment Subjective History Pt oriented x 3 on arrival. Pt agreeable to engage in therapy evaluation. 76 yowm adm to [facility] with symptomatic bradycardia. He reports he lives with his spouse, ramp to enter the home, he generally ambulates independently, but he has RW and cane at home if needed. Pt claims he is independent with all ADLs such as dressing, bathing, and feeding. However, his completes all IADLs: cleaning, cooking, and laundry. He does assist her with grocery shopping. He still drives. Subjective I really never have cleaned, my always does it. Pt resting in chair on arrival . pt agreeable to engage in sit to stand from chair. Pt stood from chair with cga/min assist. Pt able to stand for ~1 minute with fair static standing balance. Pt request to sit back down due to feeling tired. Pt sat back down in chair with cga. Pt was left resting in chair with call lemus and all other needs in reach. Objective Patient Orientation Person,Place,Birthday Upper Extremity Gross ROM WFL Transfer Training Sit/Stand Transfer Assist Level Minimal x 1 (25% assist) Rehab OT IP prob,goals,plan Problems Date of Evaluation: 08/13/22 OT IP Problems Bed Mobility,Transfers,Balance ,Self care,Safety Rehab Potential Rehab Potential Good Equipment Needs Assistive Devices Rolling / Wheeled Walker Plan OT intervention Plan Bed Mobility,Transfers,Balance ,Self care,Safety,Therapeutic Exercise OT Plan Frequency BID Duration LOS Discharge Goals Bed Mobility Ability
[2022-08-13 12:52] LABS: POC Glucose,Bedside 149 (70-110)
[2022-08-13 17:14] LABS: POC Glucose,Bedside 145 (70-110)
--- NOTE | 2022-08-13 18:26 | EXP.ACUTE.PN ---
Subjective *Date: 08/13/22 *Time: 18:27 Interval history: Mr. Kong is alert and oriented on exam this morning. Stable on 2 L nasal cannula oxygen. Denies any chest pain, worsening shortness of breath, nausea or vomiting. Tolerating p.o. intake. Discussed case with cardiology this morning, concern for digoxin toxicity. Patient remained bradycardic with heart rate 30-60 overnight. Medical Exam Vital signs and Labs for Last 24 Hours: Vital Signs Temp Pulse Pulse Resp BP Pulse Ox 08/13/22 17:00 49 L 18 117/54 L 94 L 08/13/22 16:00 44 L 22 144/92 H 89 L 08/13/22 15:00 40 L 20 133/55 L 92 L 08/13/22 14:00 49 L 20 114/48 L 95 08/13/22 13:00 35 L 20 122/63 93 L 08/13/22 12:00 43 L 18 170/69 H 90 L 08/13/22 11:00 46 L 20 108/41 L 94 L 08/13/22 10:00 45 L 20 128/56 L 93 L 08/13/22 09:00 46 L 20 191/72 H 95 08/13/22 16:00 44 L 89 L 08/13/22 08:00 37 L 93 L 08/13/22 08:00 37 L 20 192/83 H 93 L 08/13/22 15:26 98.0 F 08/13/22 12:27 31 L 08/13/22 12:24 41 L 08/13/22 08:00 45 L 08/13/22 11:50 98.2 F 08/13/22 08:00 99.8 F H 08/13/22 08:54 47 L 08/13/22 06:00 47 L 18 185/68 H 93 L 08/13/22 04:00 97.8 F 45 L 16 171/71 H 93 L 08/13/22 03:48 50 L 08/13/22 02:30 93 L 08/13/22 02:00 60 18 159/79 H 93 L 08/13/22 00:00 58 L 08/13/22 00:00 97.8 F 39 L 18 156/68 H 96 08/12/22 20:00 34 L 93 L 08/12/22 22:00 53 L 18 174/56 H 95 06/28/23 20:00 98.4 F 34 L 16 152/73 H 93 L 08/12/22 23:12 95 08/12/22 20:00 48 L Intake and Output 08/13/22 08/13/22 08/13/22 07:59 15:59 23:59 Intake Total 240 / 1010 480 / 1010 290 / 1010 Output Total 600 / 2100 1200 / 2100 300 / 2100 Balance -360 / -1090 -720 / -1090 -10 / -1090 Intake: Intake, Oral Amount 240 / 960 480 / 960 240 / 960 Intake, Total IV Amount 50 / 50 Digoxin Immune Francisco 100 mg In 0. 50 / 50 9 % Sodium Chloride 50 ml @ 100 mls/hr IV ONCE ONE Rx#: [id number] Output: Output, Urine Amount 600 / 2100 1200 / 2100 300 / 2100 Other: Number of Unmeasured Voids 1 1 Number of Bowel Movements 1 1 Weight 131.134 kg Patient Weight 08/13/22 23:59 Weight 131.134 kg Laboratory Results - last 24 hr 08/12/22 20:05: Troponin I 0.05 H 08/12/22 20:08: POC Glucose 165 H 08/13/22 06:18: WBC 42.4 H*, RBC 4.32 L, Hgb 12.8 L, Hct 42.6, MCV 98.5 H, MCH 29.7, MCHC 30.1 L, RDW 16.0, Plt Count 217, MPV 10.5 H, Neut % (Auto) 18.1 L, Lymph % (Auto) 77.1 H, [place] % (Auto) 3.5, Eos % (Auto) 0.3, Baso % (Auto) 0.9, Neut # (Auto) 7.7, Lymph # (Auto) 32.7 H, [place] # (Auto) 1.5 H, Eos # (Auto) 0.1, Baso # (Auto) 0.4 H, Total Counted 100, Neutrophils % (Manual) 29 L, Lymphocytes % (Manual) 68 H, Monocytes % (Manual) 2, Eosinophils % (Manual) 1, Platelet Estimate Normal, RBC Morphology Normal, Sodium 141, Potassium 4.7, Chloride 100, Carbon Dioxide 32 H, Anion Gap 13.7, BUN 42 H, Creatinine 1.70 H, Estimated Creat Clear 67, Estimated GFR 39 L, Est GFR ( Amer) 48 L, Glucose 131 H, Calcium 8.2 L, Magnesium 2.4 H, Total Bilirubin 0.9, AST 40, ALT 16, Alkaline Phosphatase 83, Total Protein 6.6, Albumin 3.8, Globulin 2.8, Albumin/Globulin Ratio 1.4, Triglycerides 209 H, Cholesterol 110 L, LDL Cholesterol Direct 51.16 L, VLDL Cholesterol 42 H, HDL Cholesterol 17 L, Cholesterol/HDL Ratio 6.5 H 08/13/22 06:25: Digoxin 2.00 08/13/22 06:41: POC Glucose 127 H 08/13/22 12:17: POC Glucose 149 H 08/13/22 16:28: POC Glucose 145 H I & O for Labs for Last 24 Hours: Intake & Output 08/10/22 08/11/22 08/12/22 08/13/22 23:59 23:59 23:59 23:59 Intake Total 480 / 720 1010 / 1010 Output Total 100 / 700 2100 / 2100 Balance 380 / 20 -1090 / -1090 Weight 132.647 kg 131.134 kg Constitutional: Present no acute distress, obese and chronically ill appearing Head: Present atra
[2022-08-13 19:11] LABS: Chloride 96 mmol/L (98-107); Potassium 4.4 mmoL/L (3.5-5.1); Sodium 139 mmol/L (136-145)
[2022-08-13 19:14] LABS: Anion Gap 15.4 mEq/L (5-15); Blood Urea Nitrogen 40 mg/dl (9-20); Carbon Dioxide 32 mmol/L (22.0-30.0); Creatinine Clearance Estimated 60 mL/min (50-200); Estimated Glomerular Filt Rate 35 ml/min (>60); GFR (African American) 42 ML/MIN (>60)
[2022-08-13 19:15] LABS: Calcium 8.3 mg/dl (8.4-10.2); Glucose 184 mg/dl (74-100)
[2022-08-13 20:24] LABS: POC Glucose,Bedside 189 (70-110)
[2022-08-14] VITALS (26 sets, daily range): BP systolic 109–174; BP diastolic 54–87; PULSE 31–81; RESP 12–29; TEMP 36.2–37; O2SAT 90–96; BMI 36.6; BMI 39.8
[2022-08-14 05:31] LABS: POC Glucose,Bedside 128 (70-110)
[2022-08-14 07:00] LABS: Basophils # 0.3 K/mm3 (0-0.2); Basophils % 0.8 % (0.1-2.0); Eosinophils # 0.2 K/mm3 (0.0-0.4); Eosinophils % 0.5 % (0.1-12.0); Hematocrit 42.4 % (42.0-52.0); Hemoglobin 12.8 g/dL (14.1-18.0); Lymphocytes # 29.5 K/mm3 (0.7-4.5); Lymphocytes % 77.1 % (10-50); Mean Corpuscular HGB Conc 30.1 g/dL (31.8-35.4); Mean Corpuscular Hemoglobin 29.3 pg (27.0-31.2); Mean Corpuscular Volume 97.3 fl (80-94); Mean Platelet Volume 10.4 fl (7.4-10.4); Monocytes # 1.5 K/mm3 (0.1-1.0); Monocytes % 3.8 % (1.7-9.3); Neutrophils # 6.8 K/mm3 (1.8-7.8); Neutrophils % 17.7 % (37.0-80.0); Platelet Count 184 K/mm3 (142-424); Red Blood Count 4.36 M/mm3 (4.60-6.20); Red Cell Distribution Width 15.8 % (11.5-17.5); White Blood Count 38.2 K/mm3 (4.8-10.8)
[2022-08-14 07:02] LABS: MANUAL DIFFERENTIAL MANUAL DIFFERENTIAL (MANUAL DIFF)
[2022-08-14 07:41] LABS: Chloride 99 mmol/L (98-107); Sodium 139 mmol/L (136-145)
[2022-08-14 07:42] LABS: Potassium 4.5 mmoL/L (3.5-5.1)
[2022-08-14 07:44] LABS: Alanine Aminotransferase 14 U/L (12-78); Albumin Level 3.9 g/dl (3.5-5.0); Albumin/Globulin Ratio 1.6 (1.1-1.8); Alkaline Phosphatase 80 U/L (38-126); Anion Gap 14.5 mEq/L (5-15); Aspartate Amino Transferase 32 U/L (17-59); Blood Urea Nitrogen 44 mg/dl (9-20); Calcium 8.2 mg/dl (8.4-10.2); Carbon Dioxide 30 mmol/L (22.0-30.0); Creatinine Clearance Estimated 67 mL/min (50-200); Estimated Glomerular Filt Rate 39 ml/min (>60); GFR (African American) 48 ML/MIN (>60); Globulin 2.5 g/dL (1.3-3.2); Glucose 124 mg/dl (74-100); Total Protein,Serum 6.4 g/dl (6.3-8.2)
[2022-08-14 07:45] LABS: Magnesium 2.4 mg/dl (1.6-2.3)
--- NOTE | 2022-08-14 08:13 | EXP.CARD.PN ---
Subjective Subjective Date: 08/14/22 Time: 08:00 Principal diagnosis: Symptomatic bradycardia, chronic A-fib Interval history: Patient remains in A-fib with a rate of 20s to low 50s throughout the evening and morning. Morning labs reviewed. Exam Data for Last 24 hours Vital signs and Labs for Last 24 Hours: Temp Pulse Resp BP Pulse Ox 97.8 F 39 L 16 149/68 H 92 L 08/14/22 07:46 08/14/22 06:00 08/14/22 06:00 08/14/22 06:00 08/14/22 06:00 Laboratory Results - last 24 hr 08/13/22 06:18: Total Counted 100, Neutrophils % (Manual) 29 L, Lymphocytes % (Manual) 68 H, Monocytes % (Manual) 2, Eosinophils % (Manual) 1, Platelet Estimate Normal, RBC Morphology Normal 08/13/22 06:25: Digoxin 2.00 08/13/22 12:17: POC Glucose 149 H 08/13/22 16:28: POC Glucose 145 H 08/13/22 18:40: Sodium 139, Potassium 4.4, Chloride 96 L, Carbon Dioxide 32 H, Anion Gap 15.4 H, BUN 40 H, Creatinine 1.90 H, Estimated Creat Clear 60, Estimated GFR 35 L, Est GFR ( Amer) 42 L, Glucose 184 H D, Calcium 8.3 L 08/13/22 20:17: POC Glucose 189 H 08/14/22 05:19: POC Glucose 128 H 08/14/22 06:33: WBC 38.2 H*, RBC 4.36 L, Hgb 12.8 L, Hct 42.4, MCV 97.3 H, MCH 29.3, MCHC 30.1 L, RDW 15.8, Plt Count 184, MPV 10.4, Neut % (Auto) 17.7 L, Lymph % (Auto) 77.1 H, [place] % (Auto) 3.8, Eos % (Auto) 0.5, Baso % (Auto) 0.8, Neut # (Auto) 6.8, Lymph # (Auto) 29.5 H, [place] # (Auto) 1.5 H, Eos # (Auto) 0.2, Baso # (Auto) 0.3 H, Sodium 139, Potassium 4.5, Chloride 99, Carbon Dioxide 30, Anion Gap 14.5, BUN 44 H, Creatinine 1.70 H, Estimated Creat Clear 67, Estimated GFR 39 L, Est GFR ( Amer) 48 L, Glucose 124 H D, Calcium 8.2 L, Magnesium 2.4 H, Total Bilirubin 1.0, AST 32, ALT 14, Alkaline Phosphatase 80, Total Protein 6.4, Albumin 3.9, Globulin 2.5, Albumin/Globulin Ratio 1.6 I & O for Last 24 hours: Intake & Output 08/11/22 08/12/22 08/13/22 08/14/22 23:59 23:59 23:59 23:59 Intake Total 480 / 720 1010 / 1370 360 / 360 Output Total 100 / 700 2400 / 2400 0 / 0 Balance 380 / 20 -1390 / -1030 360 / 360 Weight 292 lb 7 oz 289 lb 1.6 oz 285 lb 5 oz Constitutional Constitutional: no acute distress *Routine Respiratory Exam Respiratory: Present rhonchi, wheezes and symmetric chest movement *Routine Cardiovascular Exam Cardiovascular: Present Normal S1, Normal S2, irregular rhythm and irregularly irregular Comments: Remains slow A-fib with a rate of 30-50 *Routine Abdominal Exam Abdominal: Present soft and normoactive bowel sounds; Absent tenderness *Routine Extremities Exam Extremities: Present full ROM and normal capillary refill; Absent edema *Routine Skin Exam Skin: Present intact, dry and warm Detailed Neck Exam: Thyroids Thyroid: Absent bruit Progress Note: A&P Assessment and plan (1) Symptomatic bradycardia: Status: Acute (2) Atrial fibrillation: Status: Chronic (3) CLL (chronic lymphocytic leukemia): Status: Chronic (4) NICHOLAS (acute kidney injury): Status: Acute (5) CHF (congestive heart failure): Status: Chronic (6) MARSHAL on CPAP: Status: Chronic (7) Diabetes: Status: Chronic (8) Hyperlipemia: Status: Chronic Assessment and Plan Assessment and Plan for All Diagnoses:: Symptomatic bradycardia -Dig level 2.0 -Hold digoxin and carvedilol -Dr. [place] is concerned for dig toxicity contributing to bradycardia. Please give Digibind per pharmacy dosing -Please keep patient n.p.o. after midnight and hold Xarelto tonight for possibility of device placement tomorrow 08/14/2022: Rate remains anywhere from 30 to low 50s. We will proceed with placement of biventricular pacemaker today. Patient requires biventricular pacemaker due to afib with high degree av block requiring > 40 percent ventricular pacing with LVEF < 50 percent and NYHA symptoms II-III. Chronic A-fib -EKG shows A-fib rate 30 to 40s. -Normal cors 2019 -Currently holding digoxin and carvedilol due to symptomatic bradycardia -Continue con
[2022-08-14 08:42] LABS: Lymphocytes % 54 % (10-50); Monocytes % 10 % (2-9); Neutrophils % 36 % (42-76); Platelet Estimate Normal; RBC Morphology Normal; Total Cells Counted 100
--- NOTE | 2022-08-14 08:54 | SW/DCPLANNER ---
Addendum entered by Becca Cheng 08/19/22 08:58: The plan for this patient is to go to [facility] from home today. Addendum entered by Becca Cheng 08/17/22 14:07: [facility] is unable to accept this patient due to needing a [facility]DEV pending bed. Per family request patient information has been faxed to [facility]/ [facility]. I will follow up with [facility] once patient information is reviewed. Addendum entered by Becca Cheng 08/17/22 13:19: [facility]/ [facility]NOTE 3] is interested in this patient and will follow up with patient's daughter at home. Addendum entered by Becca Cheng 08/17/22 11:17: [facility] by [facility] does not currently have any beds. I spoke with patient's daughter and information will be faxed to [facility]NOTE 3], [facility] and [facility]. Addendum entered by Becca Cheng 08/17/22 07:17: Per family request once discharging home over the weekend patient information has been faxed to [facility] and [facility]. I will follow up with [facility] and patient/family once patient information is reviewed. Original Note: I spoke with patient this AM regarding plans once medically stable for discharge. PT/OT evaluated patient yesterday and recommended home health services. Patient stated that he resides at home w/ his in [facility]. Patient does not currently have home health services but does use home O2 at night. Patient is agreeable to home health services at time of discharge and prefers to use [facility]. Home health will be set up once patient is medically stable for discharge. Discharge date is unknown at this time.
--- NOTE | 2022-08-14 09:11 | IR_ITS ---
APPROVED REPORT Patient Location: Outpatient [facility] [employer] Operator Helper: SHIVAM Correa RT (R) PROCEDURES 1. Pocket formation for biventricular pacemaker generator with cardiac resynchronization therapy. 2. Placement of atrial sensing and pacing lead into the right atrial appendage. 3. Placement of a right ventricular sensing, pacing lead in the right ventricular apex. 4. Placement of left ventricular sensing pacing lead via the coronary sinus. 5. Permanent cardiac resynchronization therapy with biventricular pacemaker. INDICATION Sick Sinus Syndrome Informed consent was obtained prior to the procedure. COMPLICATIONS None Estimated Blood Loss: Less than 10 ML TECHNIQUE 1% Lidocaine with epinephrine used to anesthetized the left anterior aspect of the chest. Scalpel was used to make the initial cutaneous incision while electrocautery was used to dissect down tinto the fascia. The fascia was lifted off the pectoralis muscle and digitally manipulated creating a pocket for the pacemaker. The patient was then placed in Trendelenburg position and the subclavian vein was accessed three times via the Selinger technique, there are three wires in the vein. A 9.5 [place] sheath and dilator was then placed over one of the wires while keeping the other two wires in place within the subclavian vein. The dilator was removed from the sheath. Using fluoroscopic guidance, contrast was used to visualize the coronary sinus, the left ventricular lead was placed into the coronary sinus. Electronic interrogation proved acceptable thresholds and voltage within the lead. Using 3-0 silk, the left ventricular lead was then secured into place and sheath peeled away. A 6 [place] sheath was placed under fluoroscopic guidance into the subclavian vein over one of the wires while keeping the other wire in place within the subclavian vein. The dilator was removed from the sheath. Using fluoroscopic guidance, the ventricular lead was placed into the right ventricular apex, screwed and secured into place. Electronic interrogation proved acceptable thresholds and voltage within the lead. Using 3-0 silk, the ventricular lead was then secured into place. Lead was secured to the facia using the 3-0 silk. Following this, the sheath was pealed away. An additional 6 Malaysian fresh sheath and dilator was placed over the existing wire. Using fluoroscopic guidance, the atrial lead was the placed into the right atrial appendage and screwed and secured in place. Electrical interrogation demonstrated acceptable thresholds and voltage number. The atrial lead was then secured into place using 3-0 silk. 1 gram of Ancef was used to flush the pocket. Following the pacemaker generator being secured to the fascia and in place, Monocryl was used to close the subcutaneous layers while chau were used to close the cutaneous layer. A pressure dressing was placed and the patient was transferred to the postop holding area in stable condition for postoperative care. INTERROGATION Generator Model number: PM [id number] Generator Serial number: [id number] Atrial lead model number: 1458Q/86 Atrial lead serial number: [id number] P-wave: 1.5 mv Impedence: 480 ohms Threshold: a fib Right Ventricular lead model number: 2088/TC Right Ventricular lead serial number: [id number] R-wave: 8.6-10.0 mv Impedence: 710 ohms Threshold: .5v@0.4ms Left Ventricular lead model number:2088TC/52 Left Ventricular lead serial number: [id number] Impedence: 640 ohms Threshold: 1.25@1.0 ms Pacing Parameters: Mode: DDDR Base/Max Track:60 ppm / 130 ppm No diaphragmatic stimulation at 10 volts. IMPRESSION 1. Successful Pocket formation for biventricular pacemaker generator with cardiac resynchronization therapy. 2. Successful Placement
--- NOTE | 2022-08-14 09:39 | PC.NURSE ---
COURTESY TECH NOTE; ROUNDED ON PT 0825, ASSISTED PT TO RESTROOM X1 ASSIST, ACTIVITY TOLERATED WELL, 1 UNMEASURED INCONTINENCE VOID OF THE BLADDER IN BED, ASSISTED PRIMARY TECH TO CHANGE LINENS, GOWN, AND POSITION PT IN BED KIGN MULLEN
[2022-08-14 12:06] LABS: POC Glucose,Bedside 123 (70-110)
--- NOTE | 2022-08-14 13:47 | EXP.ANES.CKL ---
[facility] Disclaimer: The information contained in this section may have been updated after the patient was seen, as this information can be updated by other users. Medical History Cardiomyopathy CHF (congestive heart failure) Hyperlipidemia Hypertension Leukemia MARSHAL on CPAP Toe amputee Surgical History History of removal of cyst Family History No significant family history Social History Smoking Status: Never smoker alcohol intake: never substance use type: denies use current occupational status: retired Travel in the last 8 weeks: Inside the [place] household members: spouse housing: house [facility] Anesthesia Checklist Patient Identification Patient Identification: Arm Band, Family and Verbal (Name & ) Structural Data Admitted From: Inpatient Planned Operative Procedure/s: pacemaker Consent for Planned Operative Procedure(s) Verified: Yes Verified Documents: Surgical Consent and History and Physical NPO Status Verified Time NPO: 00:00 Airway Assessment C-Spine Mobility Assessed: Yes TMJ Mobility Assessed: Yes Dentition: Edentulous Neurological Assessment Level of Consciousness: Awake, Alert (short of breath o2 n/c) and Follows Commands Anesthesia Plan Anesthesia Risk discussed: Yes ASA Class: IV Anesthesia Type: IV sedation
--- NOTE | 2022-08-14 13:56 | PC.NURSE ---
Pt going to Transition Social Worker.
--- NOTE | 2022-08-14 14:49 | EXP.ACUTE.PN ---
Subjective *Date: 08/14/22 *Time: 14:55 Interval history: Mr. Kong had an eventful evening. Was having some delirium, became confused and mildly combative with staff. Received dose of Zyprexa, slept well. Alert and oriented x3 this morning on exam. Recalls seeing Calas yesterday in the parking lot. Does not recall seeing any at this time. No fever overnight. Remains bradycardic. No nausea or vomiting. Stable on 3 L nasal cannula. -650 cc urine output over the past 24 hours. Did not see improvement in heart rate after [employer] Medical Exam Vital signs and Labs for Last 24 Hours: Vital Signs Temp Pulse Pulse Resp BP Pulse Ox 08/14/22 13:30 51 L 19 159/77 H 93 L 08/14/22 12:00 50 L 08/14/22 08:00 50 L 08/14/22 13:47 80 84 20 136/87 96 08/14/22 12:00 39 L 18 141/71 H 94 L 08/14/22 11:49 97.7 F 08/14/22 10:00 67 18 157/87 H 94 L 08/14/22 08:00 37 L 17 172/70 H 91 L 08/14/22 07:46 97.8 F 08/14/22 06:00 39 L 16 149/68 H 92 L 08/14/22 04:00 98.6 F 08/14/22 04:00 44 L 18 174/60 H 91 L 08/14/22 03:58 52 L 93 L 08/14/22 02:00 51 L 18 112/58 L 92 L 08/14/22 00:00 31 L 08/14/22 00:00 98.2 F 08/14/22 00:00 41 L 16 152/65 H 92 L 08/13/22 22:26 43 L 94 L 08/13/22 22:00 43 L 18 156/58 H 92 L 08/13/22 20:00 47 L 16 151/71 H 93 L 08/13/22 20:00 50 L 08/13/22 20:00 97.9 F 08/13/22 18:00 53 L 18 105/39 L 94 L 08/13/22 16:00 34 L 08/13/22 17:00 49 L 18 117/54 L 94 L 08/13/22 16:00 44 L 22 144/92 H 89 L 08/13/22 15:00 40 L 20 133/55 L 92 L 08/13/22 16:00 44 L 89 L 08/13/22 15:26 98.0 F Intake and Output 08/13/22 08/14/22 08/14/22 23:59 07:59 15:59 Intake Total 290 / 1370 360 / 360 Output Total 600 / 2400 0 / 400 400 / 400 Balance -310 / -1030 360 / -40 -400 / -40 Intake: Intake, Oral Amount 240 / 1320 360 / 360 Intake, Total IV Amount 50 / 50 Digoxin Immune Francisco 100 mg In 0. 50 / 50 9 % Sodium Chloride 50 ml @ 100 mls/hr IV ONCE ONE Rx#: [id number] Output: Output, Urine Amount 600 / 2400 0 / 400 400 / 400 Other: Number of Unmeasured Voids 1 1 1 Number of Bowel Movements 1 Weight 129.416 kg 129 kg Patient Weight 08/14/22 23:59 Weight 129 kg Laboratory Results - last 24 hr 08/13/22 16:28: POC Glucose 145 H 08/13/22 18:40: Sodium 139, Potassium 4.4, Chloride 96 L, Carbon Dioxide 32 H, Anion Gap 15.4 H, BUN 40 H, Creatinine 1.90 H, Estimated Creat Clear 60, Estimated GFR 35 L, Est GFR ( Amer) 42 L, Glucose 184 H D, Calcium 8.3 L 08/13/22 20:17: POC Glucose 189 H 08/14/22 05:19: POC Glucose 128 H 08/14/22 06:33: WBC 38.2 H*, RBC 4.36 L, Hgb 12.8 L, Hct 42.4, MCV 97.3 H, MCH 29.3, MCHC 30.1 L, RDW 15.8, Plt Count 184, MPV 10.4, Neut % (Auto) 17.7 L, Lymph % (Auto) 77.1 H, [place] % (Auto) 3.8, Eos % (Auto) 0.5, Baso % (Auto) 0.8, Neut # (Auto) 6.8, Lymph # (Auto) 29.5 H, [place] # (Auto) 1.5 H, Eos # (Auto) 0.2, Baso # (Auto) 0.3 H, Total Counted 100, Neutrophils % (Manual) 36 L, Lymphocytes % (Manual) 54 H, Monocytes % (Manual) 10 H, Platelet Estimate Normal, RBC Morphology Normal, Sodium 139, Potassium 4.5, Chloride 99, Carbon Dioxide 30, Anion Gap 14.5, BUN 44 H, Creatinine 1.70 H, Estimated Creat Clear 67, Estimated GFR 39 L, Est GFR ( Amer) 48 L, Glucose 124 H D, Calcium 8.2 L, Magnesium 2.4 H, Total Bilirubin 1.0, AST 32, ALT 14, Alkaline Phosphatase 80, Total Protein 6.4, Albumin 3.9, Globulin 2.5, Albumin/Globulin Ratio 1.6 08/14/22 11:54: POC Glucose 123 H I & O for Labs for Last 24 Hours: Intake & Output 08/11/22 08/12/22 08/13/22 08/14/22 23:59 23:59 23:59 23:59 Intake Total 480 / 720 1010 / 1370 360 / 360 Output Total 100 / 700 2400 / 2400 400 / 400 Balance 380 / 20 -1390 / -1030 -40 / -40 Weight 132.647 kg 131.134 kg 129 kg Constitutional: Present no a
--- NOTE | 2022-08-14 15:43 | XR_ITS ---
FINAL REPORT CLINICAL HISTORY: Confirm pacemaker/AID placement FINDINGS: SINGLE VIEW CHEST Cardiomegaly is noted. A left subclavian pacemaker is noted. Left basilar opacities are favored to represent atelectasis. There is a small left pleural effusion. No pneumothorax is identified. IMPRESSION: No pneumothorax status post left subclavian pacemaker placement. Reviewed, Interpreted and Dictated by Geovany Tijerina III, MD Transcribed by Margoth Hendrix Authenticated and [facility]
[2022-08-14 17:19] LABS: POC Glucose,Bedside 128 (70-110)
--- NOTE | 2022-08-14 18:44 | PC.NURSE ---
Pt is currently sleeping at this time. Pacemaker site has slight bruising noted. No hematoma. DSG is C/D/I. Safety measures are in place. VS currently stable. Pt is paced on telemetry at 80.
[2022-08-15] VITALS (9 sets, daily range): BP systolic 103–159; BP diastolic 52–76; PULSE 79–89; RESP 16–20; TEMP 36.4–37.5; O2SAT 91–96; BMI 39.4
[2022-08-15 05:47] LABS: POC Glucose,Bedside 193 (70-110)
--- NOTE | 2022-08-15 06:38 | PC.NURSE ---
Patient has been pleasant and cooperative this shift, on 4LNC at this time, has periods of o2 saturations dropping while sleeping, purwick in place, had a moderate size BM this shift, pacemaker site cdi with no hematoma noted, mild bruising unchanged from beginning of shift, denies any cp or soa, pacing 80-85, 2+ edema noted to BLE, has been turned q2h this shift with wedge pillow for repositioning, no skin issues noted, bed in lowest position with call light in reach, bed safety alarm activated.
[2022-08-15 07:42] LABS: Basophils # 0.5 K/mm3 (0-0.2); Eosinophils # 0.1 K/mm3 (0.0-0.4); Eosinophils % 0.3 % (0.1-12.0); Hematocrit 42.2 % (42.0-52.0); Hemoglobin 12.8 g/dL (14.1-18.0); Lymphocytes # 36.5 K/mm3 (0.7-4.5); Lymphocytes % 74.4 % (10-50); Mean Corpuscular HGB Conc 30.3 g/dL (31.8-35.4); Mean Corpuscular Hemoglobin 29.5 pg (27.0-31.2); Mean Corpuscular Volume 97.4 fl (80-94); Mean Platelet Volume 10.2 fl (7.4-10.4); Monocytes # 1.7 K/mm3 (0.1-1.0); Monocytes % 3.5 % (1.7-9.3); Neutrophils # 10.2 K/mm3 (1.8-7.8); Neutrophils % 20.9 % (37.0-80.0); Platelet Count 240 K/mm3 (142-424); Red Blood Count 4.33 M/mm3 (4.60-6.20); Red Cell Distribution Width 15.9 % (11.5-17.5)
[2022-08-15 07:49] LABS: MANUAL DIFFERENTIAL MANUAL DIFFERENTIAL (MANUAL DIFF)
[2022-08-15 07:50] LABS: Chloride 96 mmol/L (98-107); Sodium 140 mmol/L (136-145)
[2022-08-15 07:53] LABS: Alanine Aminotransferase 16 U/L (12-78); Alkaline Phosphatase 87 U/L (38-126); Aspartate Amino Transferase 36 U/L (17-59); Bilirubin,Total 1.1 mg/dl (0.2-1.3); Blood Urea Nitrogen 43 mg/dl (9-20); Carbon Dioxide 34 mmol/L (22.0-30.0); Creatinine Clearance Estimated 62 mL/min (50-200); Estimated Glomerular Filt Rate 37 ml/min (>60); GFR (African American) 44 ML/MIN (>60)
[2022-08-15 07:54] LABS: Albumin Level 3.7 g/dl (3.5-5.0); Albumin/Globulin Ratio 1.2 (1.1-1.8); Calcium 8.1 mg/dl (8.4-10.2); Glucose 131 mg/dl (74-100); Total Protein,Serum 6.7 g/dl (6.3-8.2)
[2022-08-15 08:07] LABS: Anisocytosis 1+; Lymphocytes % 61 % (10-50); Macrocytosis 1+; Monocytes % 5 % (2-9); Neutrophils % 34 % (42-76); Total Cells Counted 100
[2022-08-15 08:08] LABS: Hypochromasia 1+; Platelet Estimate Normal; Poikilocytosis 1+
--- NOTE | 2022-08-15 09:14 | XR_ITS ---
PROCEDURE INFORMATION: Exam: XR Chest Exam date and time: 08/15/2022 9:59 AM Age: 76 years old Clinical indication: Shortness of breath TECHNIQUE: Imaging protocol: Radiologic exam of the chest. Views: 1 view. COMPARISON: CR XR CHEST PORTABLE 08/14/2022 4:09 PM FINDINGS: Tubes, catheters and devices: A permanent pacemaker overlies and obscures the left lateral chest and axilla with atrial, ventricular and coronary sinus wire leads present. Lungs: Increased markings are noted in the left upper lung. The left lung apex is obscured by the patient's head. Pleural spaces: Unremarkable. No pleural effusion. No pneumothorax. Heart/Mediastinum: Unremarkable. No cardiomegaly. Bones/joints: Unremarkable. IMPRESSION: Somewhat limited study. Increased markings in the left lung.
--- NOTE | 2022-08-15 09:59 | HMH.ITSTN ---
spoke to nurse Daija- pt unable to stand on his own without assistance. I am alone as the weekend tech unable to hold pt up during xray- advised I will modify to a portable
[2022-08-15 11:10] LABS: POC Glucose,Bedside 141 (70-110)
--- NOTE | 2022-08-15 13:01 | EXP.DC.SUM ---
General Admission date:: 08/13/22 Discharge date: 08/15/22 HPI HPI HPI: Mr. Kong is a 76-year-old male with significant cardiac history, history of cardiomyopathy, CHF, CLL, diabetes, A-fib who presents today to the ER with bradycardia and weakness. States he fell last night at home. Went to his primary care today who gave the ER call. Patient was sent for further evaluation. Does not have a defibrillator AICD in place. Last echo approximately a year ago with a EF 40 to 45%. Currently on beta-blockers with carvedilol and digoxin. Urine output has been normal. Denies any increase in shortness of breath. Denies any chest pain. No edward syncope. No fever, chills, increased cough. Swelling in legs is at baseline. Of note leukocytosis greater than 40,000, on ibrutinib for his CLL. ER consulted medicine for admission and further management. Currently on telemetry. Admitted to stepdown out of potential need for possible pacing or treatment with atropine for bradycardia. Continue telemetry. Patient pleasant, alert on exam. Chronically ill-appearing. Complains of weakness. Hospital Course Hospital Course Hospital Course: 76-year-old male with significant cardiac history, A-fib, combined heart failure, CLL, diabetes who presents with symptomatic bradycardia. Remains bradycardic. Did not respond with improved heart rate after receiving DigiFab. Cardiology consulted, anticipate placement of pacemaker today. Problems addressed as follows: Symptomatic bradycardia Combined heart failure Aortic stenosis Atrial fibrillation -Presented with symptomatic bradycardia. Did not improve with holding his beta-luis m nor giving DigiFab to treat suspected digoxin toxicity. Remained in A-fib with slow conduction, heart rate 30-50. Necessitating pacemaker. Cardiology was consulted. Pacemaker placed on 08/14. Patient tolerated procedure well. Slight improvement in energy with improved heart rate of 75-80. Blood pressure regimen was continued with lisinopril. Given placement of cardiac resynchronization therapy, resume carvedilol at discharge. We will discontinue digoxin. Plan for close follow-up with cardiology to evaluate healing of pacemaker pocket and to evaluate for further adjustment. Echo obtained during admission showing slight decrease in ejection fraction. See report for full details. Stable for discharge home from a cardiac standpoint. Resume Xarelto this evening for anticoagulation. Continue Lasix twice daily to maintain volume status. NICHOLAS - baseline creatinine approximately 1. Creatinine 1.7-1.9 during admission. Will need repeat labs in 1 to 2 weeks to monitor for improvement. Concern for NICHOLAS versus ATN secondary to low cardiac output state. Chronic respiratory failure, on oxygen. Has sleep apnea. Appears to have some mild volume overload as well. Continue diuretics as above. Continue supplemental oxygen with goal saturation greater 90%. Able to tolerate 1 to 2 L during the day. Continue 3 L at night. Continue treatment with albuterol. -Continue albuterol as needed Hypothyroid, TSH 7.4. levothyroxine increased to 100 mcg. Diabetes. Uncontrolled with A1c above 8. Initially held metformin in the setting of kidney injury. We will discontinue glipizide at discharge due to risk of hypoglycemia. Resume metformin. Resume Farxiga at discharge. Previously prescribed by his PCP last month. CLL, complicates all aspects of his care. -Continue ibrutinib, no overt sign of infection at this time. Holding on antibiotics. Confusion -Patient had confusion as the evening went on. Concern for owning. Would benefit from evaluation for dementia. Defer to PCP. Patient evaluated by PT and OT during admission. He is at his baseline level of function however has difficulty with ADLs. Ambulates with a walker. Discussions with family, patient is minimally active at home. They would like to see him in a nursing facility for r
--- NOTE | 2022-08-17 15:21 | CARE MANAGER ---
Spoke with patient's spouse in regards to recent discharge. Becca is working with patient and family to try and get him into a SNF. Spouse states that he has started his new medication.
== END 2022-08-15 14:15 | disposition home health service (06) | DRG 242 ==
LOC: ER 15:33 → 2ND 16:07
PROVIDERS: Internal Medicine; Nurse Practitioner; Admitting Provider Internal Medicine Adolescent Medicine; Emergency Provider Student in an Organized Health Care Education/Training Program; PCP Family Medicine; Visit Provider Internal Medicine Adolescent Medicine
PROC: 0JH637Z Insertion of Cardiac Resynchronization Pacemaker Pulse Generator into Chest Subcutaneous Tissue and Fascia, Percutaneous Approach (ICD-10-PCS; principal; 2022-08-14 11:45)
DX: I49.5 Sick sinus syndrome (principal); I50.23 Acute on chronic systolic (congestive) heart failure; C91.10 Chronic lymphocytic leukemia of B-cell type not having achieved remission; N17.9 Acute kidney failure, unspecified; I13.0 Hypertensive heart and chronic kidney disease with heart failure and stage 1 through stage 4 chronic kidney disease, or unspecified chronic kidney disease; J96.10 Chronic respiratory failure, unspecified whether with hypoxia or hypercapnia; I48.20 Chronic atrial fibrillation, unspecified; I42.9 Cardiomyopathy, unspecified; Z79.84 Long term (current) use of oral hypoglycemic drugs; G47.33 Obstructive sleep apnea (adult) (pediatric); Z95.810 Presence of automatic (implantable) cardiac defibrillator; E11.22 Type 2 diabetes mellitus with diabetic chronic kidney disease; N18.9 Chronic kidney disease, unspecified; E78.2 Mixed hyperlipidemia; Z99.81 Dependence on supplemental oxygen; E03.9 Hypothyroidism, unspecified; E11.65 Type 2 diabetes mellitus with hyperglycemia
CPT/HCPCS: 33208; 33225; 36415; 71045; 80048; 80053; 80061; 80162; 82962; 83036; 83735; 84443; 84484; 85007; 85025; 87636; 93005; 93306; 97110; 97116; 97163; 97166; 97530; 99285; C1769; C1898; C1900; C2621; C9803; G0378; J0696; J1162; J2704; Q9967; U0003; U0005

== ENCOUNTER → 2022-08-25 15:32 | Outpatient (CLI) | payer MEDICARE, MEDICAID, SELFPAY ==
--- NOTE | 2022-08-25 15:33 | CA_ITS ---
FINAL REPORT TECHNIQUE: Graded compression, spectral analysis and ultrasound images of the venous system of the right upper extremity were obtained. CLINICAL HISTORY: swelling s/p fall FINDINGS: The jugular vein, subclavian vein, axillary vein, brachial vein, cephalic vein and basilic venous system are fully compressible and demonstrate no evidence of thrombosis. IMPRESSION: No evidence of thrombosis of the venous system of the right upper extremity. Reviewed, Interpreted and Dictated by Geovany Tijerina III, MD Transcribed by Jasper Shah Authenticated and [facility]
--- NOTE | 2022-08-25 15:50 | XR_ITS ---
FINAL REPORT CLINICAL HISTORY: swelling/bruising, recent fall FINDINGS: RIGHT FOREARM SERIES Two views of the right forearm were obtained. There is no acute fracture or dislocation. There is mild degenerative change of the elbow. There is mild degenerative change of the wrist. There is no soft tissue abnormality. IMPRESSION: Mild degenerative changes of the elbow and the wrist. Reviewed, Interpreted and Dictated by Geovany Tijerina III, MD Transcribed by Dolores Flores Authenticated and . [facility]
--- NOTE | 2022-08-25 15:50 | XR_ITS ---
FINAL REPORT CLINICAL HISTORY: fall, swelling and bruising FINDINGS: RIGHT HAND SERIES Three views of the right hand were obtained. There is no acute fracture or dislocation. There is mild degenerative change. There is dorsal hand soft tissue swelling. IMPRESSION: Mild degenerative change. Reviewed, Interpreted and Dictated by Geovany Tijerina III, MD Transcribed by Dolores Flores Authenticated and [facility]
== END ==
PROVIDERS: PCP Family Medicine; Visit Provider Nurse Practitioner
DX: M79.89 Other specified soft tissue disorders (principal); M79.601 Pain in right arm; S49.91XA Unspecified injury of right shoulder and upper arm, initial encounter
CPT/HCPCS: 73090; 73130; 93971